=== PATIENT | male | born 1985 | race Caucasian/White ===

== ENCOUNTER 2024-12-22 13:05 | Inpatient (IN) | payer OTHER, SELFPAY ==
[~2024-12-22] VITALS: Ht 175.3 cm; Wt 84.7 kg
[2024-12-22] MEDS ORDERED: ISOVUE-370 76% 100 ML VIAL As Ordered ONE (13:55)
[2024-12-22 14:01] LABS: BASO # 0.1 10^3/uL (0.0-0.2); BASO % 0.7 % (0.0-1.0); EOS # 0.2 10^3/uL (0.0-0.5); EOS % 2.1 % (0.0-3.0); LYMPH # 1.4 10^3/uL (1.5-5.0); LYMPH % 16.1 % (24.0-44.0); MONO # 0.5 10^3/uL (0.0-0.8); MONO % 6.2 % (2.0-8.0); NEUTROPHILS # 6.6 10^3/uL (1.5-8.5); NEUTROPHILS % 74.7 % (36.0-66.0); PLATELET COUNT, AUTOMATED 301 10^3/uL (150-450)
[2024-12-22] MEDS: ACETAMINOPHEN *IV* 1,000 MG in IV 1 EA IV ONE (14:20)
[2024-12-22 14:23] LABS: INR 0.89
[2024-12-22 14:32] LABS: CALCIUM LEVEL 9.0 MG/DL (8.5-10.1); CARBON DIOXIDE LEVEL 25 MMOL/L (20-31); CHLORIDE LEVEL 107 MMOL/L (98-107); CREATININE FOR GFR 0.69 MG/DL (0.70-1.30); GLOMERULAR FILTRATION RATE > 90.0 (>60); POTASSIUM SERUM 4.4 MMOL/L (3.5-5.1); SODIUM LEVEL 141 MMOL/L (136-145)
[2024-12-22] MEDS ORDERED: PROHANCE 279.3MG/ML 15ML VIAL As Ordered ONE (16:04)
[2024-12-22] MEDS: NS (Normal Saline) 0.9% 1,000 ML IV ONE (17:00)
[2024-12-22 17:40] LABS: INR 0.94
[2024-12-22] MEDS ORDERED: LISI10TA22 PO (17:49)
[2024-12-22] MEDS ORDERED: NICO1DIS12 TD (17:49)
[2024-12-22] MEDS ORDERED: HOME MED LIST COMPLETE! XX SCH (17:50)
[2024-12-22 18:05] LABS: AMPHETAMINES LEVEL URINE NEGATIVE (NEGATIVE); BARBITURATES URINE NEGATIVE (NEGATIVE); BENZODIAZEPINES URINE NEGATIVE (NEGATIVE); CANNABINOIDS URINE NEGATIVE (NEGATIVE); COCAINE METABOLITE URINE NEGATIVE (NEGATIVE); METHADONE URINE NEGATIVE (NEGATIVE); OPIATES URINE NEGATIVE (NEGATIVE); PHENCYCLIDINE URINE NEGATIVE (NEGATIVE)
[2024-12-22 18:40] LABS: C REACTIVE PROTEIN QUANTITATIV < 0.50 MG/DL (<1.0)
[2024-12-22] MEDS: methylPREDNISolone 1,000 MG, VIAL MATE ADAPTER 1 EACH in NS 100 ML IV ONE (20:26)
[2024-12-22 22:51] VITALS: BP 132/66; TEMP 97.1; O2SAT 98
[2024-12-22] MEDS: NICOTINE 14 MG/24 HR TRANSDERMAL TD SCH (23:18)
[2024-12-23] MEDS: ACETAMINOPHEN 325 MG TAB PO PRN (00:03)
[2024-12-23 04:00] VITALS: BP 106/59; TEMP 97; O2SAT 93
[2024-12-23 07:48] LABS: PLATELET COUNT, AUTOMATED 312 10^3/uL (150-450)
[2024-12-23 08:14] LABS: CALCIUM LEVEL 9.2 MG/DL (8.5-10.1); CARBON DIOXIDE LEVEL 25 MMOL/L (20-31); CHLORIDE LEVEL 105 MMOL/L (98-107); CREATININE FOR GFR 0.58 MG/DL (0.70-1.30); GLOMERULAR FILTRATION RATE > 90.0 (>60); POTASSIUM SERUM 4.1 MMOL/L (3.5-5.1); SODIUM LEVEL 140 MMOL/L (136-145)
[2024-12-23] MEDS ORDERED: NICOTINE 14 MG/24 HR TRANSDERMAL TD SCH (09:00)
[2024-12-23] MEDS: ENOXAPARIN 40 MG/0.4 ML SYRINGE (J1650 PER 10MG) SC SCH (09:20)
[2024-12-23] MEDS: PANTOPRAZOLE 40MG VIAL IV SCH (09:20)
[2024-12-23 12:00] VITALS: BP 126/60; TEMP 98.5; O2SAT 97
[2024-12-23 19:29] VITALS: BP 126/58; TEMP 98.8; O2SAT 95
[2024-12-23] MEDS: methylPREDNISolone 1,000 MG, VIAL MATE ADAPTER 1 EACH in NS 100 ML IV SCH (20:02)
[2024-12-23] MEDS: ONDANSETRON 4MG/2ML VIAL IV PRN (20:03)
[2024-12-23] MEDS: KETOROLAC 30 MG/ML 1 ML VIAL IV ONE (20:03)
[2024-12-24 03:48] VITALS: BP 104/56; TEMP 98.2; O2SAT 97
[2024-12-24 06:01] LABS: PLATELET COUNT, AUTOMATED 275 10^3/uL (150-450)
[2024-12-24 06:37] LABS: ALT/SGPT 35 U/L (7.0-40); AST/SGOT 20 U/L (<34); CALCIUM LEVEL 8.3 MG/DL (8.5-10.1); CARBON DIOXIDE LEVEL 27 MMOL/L (20-31); CHLORIDE LEVEL 100 MMOL/L (98-107); CREATININE FOR GFR 0.69 MG/DL (0.70-1.30); GLOMERULAR FILTRATION RATE > 90.0 (>60); MAGNESIUM LEVEL 1.5 MG/DL (1.8-2.4); POTASSIUM SERUM 4.0 MMOL/L (3.5-5.1); SODIUM LEVEL 136 MMOL/L (136-145)
[2024-12-24] MEDS: KETOROLAC TROMETHAMINE 10 MG TAB PO PRN (14:36)
[2024-12-24 16:15] VITALS: BP 124/59; TEMP 98.3; O2SAT 97
[2024-12-24 19:44] VITALS: BP 125/72; TEMP 97.5; O2SAT 99
[2024-12-25 06:00] VITALS: BP 130/74; TEMP 97.9; O2SAT 97
[2024-12-25 06:34] LABS: PLATELET COUNT, AUTOMATED 264 10^3/uL (150-450)
[2024-12-25 07:10] LABS: ALT/SGPT 64 U/L (7.0-40); AST/SGOT 37 U/L (<34); CALCIUM LEVEL 8.2 MG/DL (8.5-10.1); CARBON DIOXIDE LEVEL 25 MMOL/L (20-31); CHLORIDE LEVEL 102 MMOL/L (98-107); CREATININE FOR GFR 0.68 MG/DL (0.70-1.30); GLOMERULAR FILTRATION RATE > 90.0 (>60); MAGNESIUM LEVEL 1.4 MG/DL (1.8-2.4); POTASSIUM SERUM 3.6 MMOL/L (3.5-5.1); SODIUM LEVEL 139 MMOL/L (136-145)
[2024-12-25] MEDS: MAG SULF 1GM/100ML (MAG RUN) 1 GM in IV 1 EA IV SCH (08:20)
[2024-12-25 08:58] VITALS: BP 125/54; TEMP 97.2
[2024-12-25] MEDS: LORazepam 1 MG TAB PO PRN (09:28)
[2024-12-25] MEDS: NICOTINE 21 MG/24 HR 1 EA TRANSDERMAL TD SCH (09:29)
[2024-12-25 14:00] VITALS: BP 106/46; TEMP 98.1; O2SAT 97
[2024-12-25 16:57] LABS: CARDIOLIPIN IGA ANTIBODY < 2.0 APL-U/mL (<20.0); CARDIOLIPIN IGG ANTIBODY < 2.0 GPL-U/mL (<20.0); CARDIOLIPIN IGM ANTIBODY < 2.0 MPL-U/mL (<20.0)
[2024-12-25 20:41] VITALS: BP 119/57; TEMP 97.3; O2SAT 93
[2024-12-26 06:49] VITALS: BP 137/66; TEMP 98.1; O2SAT 95
[2024-12-26 07:12] LABS: PLATELET COUNT, AUTOMATED 280 10^3/uL (150-450)
[2024-12-26 07:42] LABS: ALT/SGPT 57 U/L (7.0-40); AST/SGOT 18 U/L (<34); CALCIUM LEVEL 8.4 MG/DL (8.5-10.1); CARBON DIOXIDE LEVEL 24 MMOL/L (20-31); CHLORIDE LEVEL 106 MMOL/L (98-107); CREATININE FOR GFR 0.65 MG/DL (0.70-1.30); GLOMERULAR FILTRATION RATE > 90.0 (>60); MAGNESIUM LEVEL 2.0 MG/DL (1.8-2.4); POTASSIUM SERUM 3.5 MMOL/L (3.5-5.1); SODIUM LEVEL 143 MMOL/L (136-145)
[2024-12-26 14:00] VITALS: BP 153/64; TEMP 98.7; O2SAT 98
[2024-12-26] MEDS ORDERED: MIRALAX *UNIT DOSE* 17 GM PACKET PO PRN (14:25)
[2024-12-26] MEDS: SENNA 8.6 MG TAB PO SCH (14:41)
[2024-12-26] MEDS: methylPREDNISolone 1,000 MG, VIAL MATE ADAPTER 1 EACH in NS 100 ML IV ONE (18:11)
[2024-12-26] MEDS: POTASSIUM CHLORIDE 10MEQ SR TABLET PO ONE (18:53)
[2024-12-26 23:02] LABS: ANTI THROMBIN 3 ANTIGEN IMMUNO 100 % normal (80-120); ANTI THROMBIN 3 FUNCT ACTIVITY 110 % normal (80-135)
[2024-12-26 23:07] VITALS: BP 134/73; TEMP 98.8; O2SAT 96
[2024-12-27 00:03] LABS: PROTEIN C FUNCTIONAL ACTIVITY 136 % normal (70-180); PROTEIN S FUNCTIONAL ACTIVITY 114 % normal (70-150)
[2024-12-27 07:24] VITALS: BP 113/62; TEMP 99; O2SAT 99
[2024-12-27 09:25] VITALS: BP 140/60
[2024-12-27 13:23] LABS: FACTOR V LEIDEN FOR MEDINET NEGATIVE
[2024-12-27 17:37] LABS: PHOSPHOLIPIDS LEVEL 195 mg/dL (151-264)
[2024-12-28 14:48] LABS: FACTOR II PROTHROMBIN GENE AN NEGATIVE
== END 2024-12-27 13:05 | disposition other institution (70) | DRG 43 ==
LOC: M ED 13:05 → M ED INP 19:40 → M MS4PR 22:51 → M MS5PR 12-24 16:00
PROVIDERS: ADMIT Internal Medicine; ATTEND Student in an Organized Health Care Education/Training Program
PROC: B246ZZZ Ultrasonography of Right and Left Heart (ICD-10-PCS; principal; 2024-12-23)
DX: G35.D Multiple sclerosis, unspecified (principal); I10 Essential (primary) hypertension; F17.200 Nicotine dependence, unspecified, uncomplicated; Z79.899 Other long term (current) drug therapy; Z88.8 Allergy status to other drugs, medicaments and biological substances